=== PATIENT | male | born 2000 ===

== ENCOUNTER 2024-05-23 10:42 | Day surgery (SDC) | payer BC ==
[~2024-05-23 10:42] MED LIST: Metoclopramide 10 MG/2 ML SDV IV PRN
[2024-05-23] MEDS: Sodium Chloride 0.9% 1,000 ML IV SCH (11:26)
== END 2024-05-23 13:13 | disposition home or self-care (01) ==
LOC: LB.SDS 10:42
PROVIDERS: ATTEND Surgery
DX: K63.5 Polyp of colon (principal); I10 Essential (primary) hypertension
CPT/HCPCS: J2704; J7030